=== PATIENT | male | born 1940 | race African-American/Black ===

== ENCOUNTER 2018-08-07 20:23 | Inpatient (IN) | payer MEDICAID, MEDICARE ==
[~2018-08-07] VITALS: Ht 180.3 cm; Wt 80.8 kg
[~2018-08-07 20:23] MED LIST: ASPI-986 PO; AVODART; CLOP75TA16 PO; DIGOXIN; FLORANEX; LOTREL; TYLENOL PO
[2018-08-07] MEDS ORDERED: SODIUM CHLORIDE 0.9% 1,000 ML IV ONE (20:39)
[2018-08-07] MEDS ORDERED: ONDANSETRON HCL 4MG/2ML INJ IV STA (21:03)
[2018-08-07] MEDS ORDERED: MORPHINE SULFATE 4 MG/ML CPJ (NOT FOR IM USE) IV STA (21:03)
[2018-08-07] MEDS ORDERED: ASPIRIN 81MG TABLET PO ONE (21:15)
[2018-08-07 22:09] LABS: BASOPHILS % 0.2 % (0.0-2.0); EOSINOPHILS % 0.1 % (0.0-5.0); HEMATOCRIT. 42.4 % (42.0-52.0); HEMOGLOBIN. 14.3 g/dL (14.0-18.0); LYMPHOCYTES % 12.4 % (20.0-50.0); MEAN CORPUSCULAR HEMOGLOBIN 32.4 pg (28.0-32.0); MEAN CORPUSCULAR VOLUME 95.7 fL (80.0-94.0); MEAN PLATELET VOLUME 8.8 fl (7.4-10.4); MONOCYTES % 7.2 % (2.0-8.0); NEUTROPHILS % 80.1 % (40.0-76.0); PLATELET 208 x1000/uL (130-400); RED BLOOD CELL COUNT 4.43 mill/uL (4.7-6.1)
[2018-08-07 22:11] LABS: CHLORIDE 106 mEq/L (98-107); INR 1.1; PROTHROMBIN TIME 10.9 sec (9.1-11.1)
[2018-08-07 22:19] LABS: ETHANOL BLOOD < 10 mg/dL
[2018-08-07 22:44] LABS: *AMPHETAMINES SCREEN URINE NEGATIVE (NEGATIVE); *BARBITURATES SCREEN URINE NEGATIVE (NEGATIVE); *BENZODIAZEPINES SCREEN URINE NEGATIVE (NEGATIVE); *COCAINE SCREEN URINE PRESUMTIVE POSITIVE (NEGATIVE); METHADONE URINE SCREEN NEGATIVE (NEGATIVE); OPIATES URINE SCREEN NEGATIVE (NEGATIVE)
[2018-08-07 22:45] LABS: CANNABINOID URINE SCREEN PRESUMTIVE POSITIVE (NEGATIVE); PHENCYCLIDINE URINE SCREEN NEGATIVE (NEGATIVE)
[2018-08-08] VITALS (7 sets, daily range): BP systolic 123–163; BP diastolic 72–100
[2018-08-08] MEDS ORDERED: ACET-2178 PO (04:01)
[2018-08-08] MEDS ORDERED: MEDICATION NOT ON FORMULARY EA (Acetaminophen (Tylenol) 650 MG) PO PRN (05:15)
[2018-08-08] MEDS ORDERED: MEDICATION NOT ON FORMULARY EA (Aspirin 325 MG) PO SCH (09:00)
[2018-08-08] MEDS ORDERED: MEDICATION NOT ON FORMULARY EA (Clopidogrel Bisulfate (Plavix) 75 MG) PO SCH (09:00)
[2018-08-08] MEDS: METOPROLOL TARTRATE 25MG TABLET PO SCH ×2 (09:16→22:21)
[2018-08-08] MEDS: ASPIRIN 325MG TABLET PO SCH (09:16)
[2018-08-08] MEDS: AMLODIPINE 5MG TABLET PO SCH (09:16)
[2018-08-08] MEDS: CLOPIDOGREL 75MG TABLET PO SCH (09:17)
[2018-08-08] MEDS: NICOTINE 14MG PATCH TD SCH (11:21)
[2018-08-08] MEDS: FOLIC ACID 1MG TABLET PO SCH (11:21)
[2018-08-08] MEDS: MULTIVITAMINS,THER W-MINERALS TABLET PO SCH (11:22)
[2018-08-08] MEDS: THIAMINE HCL 100MG TABLET PO SCH (11:22)
[2018-08-08] MEDS: TAMSULOSIN HCL 0.4MG SR CAPSULE PO SCH (11:23)
[2018-08-08 11:27] LABS: CREATINE KINASE MB FRACTION 1.4 ng/mL (0.5-3.6)
[2018-08-08] MEDS ORDERED: DEXTROSE 50% WATER 50ML SYRINGE IV PRN (13:00)
[2018-08-08 13:05] LABS: CLARITY URINE CLOUDY (CLEAR); COLOR URINE YELLOW (YELLOW); KETONES URINE TRACE (NEGATIVE); LEUKOCYTE ESTERASE URINE 1+ (NEGATIVE); NITRITE URINE NEGATIVE (NEGATIVE); OCCULT BLOOD URINE 3+ (NEGATIVE); PH URINE 5.5 (4.5-8.0); PROTEIN URINE 2+ (NEGATIVE); SPECIFIC GRAVITY URINE 1.022 (1.005-1.030)
[2018-08-08] MEDS: INSULIN LISPRO 100 UNITS/ML SUBCUT SCH ×3 (14:03→22:48)
[2018-08-08] MEDS ORDERED: LACTULOSE 20G/30ML UDC PO PRN (15:30)
[2018-08-08] MEDS: DOCUSATE SODIUM 250MG CAPSULE PO SCH (16:51)
[2018-08-08] MEDS: BLOOD SUGAR DIAGNOSTIC STRIP TEST SCH ×2 (17:43→22:21)
[2018-08-08] MEDS: CEFTRIAXONE 1 G PREMIX 50 ML IV SCH (17:56)
[2018-08-08] MEDS: BUDESONIDE 0.5MG/2ML NEB HHN SCH (19:30)
[2018-08-08] MEDS: IPRATROPIUM/ALBUTEROL 0.5-3(2.5)MG/3ML NEB HHN SCH (19:30)
[2018-08-08] MEDS: ACETAMINOPHEN 325MG TABLET PO PRN (22:34)
[2018-08-09] VITALS: BP 141/68
[2018-08-09] MEDS: IPRATROPIUM/ALBUTEROL 0.5-3(2.5)MG/3ML NEB HHN SCH ×4 (01:30→19:57)
[2018-08-09 04:00] VITALS: BP 136/91
[2018-08-09] MEDS: BLOOD SUGAR DIAGNOSTIC STRIP TEST SCH ×4 (06:46→21:50)
[2018-08-09 07:32] LABS: BASOPHILS % 0.3 % (0.0-2.0); EOSINOPHILS % 2.5 % (0.0-5.0); HEMATOCRIT. 41.1 % (42.0-52.0); LYMPHOCYTES % 35.6 % (20.0-50.0); MEAN CORPUSCULAR HEMOGLOBIN 32.3 pg (28.0-32.0); MEAN CORPUSCULAR VOLUME 94.9 fL (80.0-94.0); MEAN PLATELET VOLUME 8.8 fl (7.4-10.4); MONOCYTES % 11.8 % (2.0-8.0); NEUTROPHILS % 49.8 % (40.0-76.0); PLATELET 196 x1000/uL (130-400); RED BLOOD CELL COUNT 4.33 mill/uL (4.7-6.1); RED CELL DISTRIBUTION WIDTH 13.7 % (11.6-14.6)
[2018-08-09] MEDS: BUDESONIDE 0.5MG/2ML NEB HHN SCH ×2 (07:52→19:58)
[2018-08-09] MEDS: ASPIRIN 325MG TABLET PO SCH (08:36)
[2018-08-09] MEDS: MULTIVITAMINS,THER W-MINERALS TABLET PO SCH (08:36)
[2018-08-09] MEDS: FOLIC ACID 1MG TABLET PO SCH (08:36)
[2018-08-09] MEDS: AMLODIPINE 5MG TABLET PO SCH (08:36)
[2018-08-09] MEDS: CLOPIDOGREL 75MG TABLET PO SCH (08:36)
[2018-08-09] MEDS: METOPROLOL TARTRATE 25MG TABLET PO SCH ×2 (08:37→21:44)
[2018-08-09] MEDS: DOCUSATE SODIUM 250MG CAPSULE PO SCH (08:37)
[2018-08-09] MEDS: TAMSULOSIN HCL 0.4MG SR CAPSULE PO SCH (08:38)
[2018-08-09] MEDS: NICOTINE 14MG PATCH TD SCH (09:04)
[2018-08-09] MEDS: THIAMINE HCL 100MG TABLET PO SCH (09:04)
[2018-08-09 09:36] LABS: CHLORIDE 106 mEq/L (98-107)
[2018-08-09 10:34] LABS: T4 FREE 1.21 ng/dL (0.76-1.46)
[2018-08-09] MEDS ORDERED: BISACODYL 10MG SUPP PR PRN (11:30)
[2018-08-09] MEDS ORDERED: NA PHOS,M-B/NA PHOS,DI-BA ENEMA 118ML PR NR (11:30)
[2018-08-09 12:00] VITALS: BP 135/81
[2018-08-09] MEDS: INSULIN LISPRO 100 UNITS/ML SUBCUT SCH ×4 (12:45→21:50)
[2018-08-09] MEDS: GABAPENTIN 300MG CAPSULE PO SCH ×2 (14:00→21:44)
[2018-08-09 16:00] VITALS: BP 137/73
[2018-08-09 16:07] LABS: CREATINE KINASE 69 IU/L (39-308)
[2018-08-09 16:08] LABS: CREATINE KINASE MB FRACTION < 1.0 ng/mL (0.5-3.6)
[2018-08-09] MEDS: CEFTRIAXONE 1 G PREMIX 50 ML IV SCH (17:21)
[2018-08-09 18:00] VITALS: BP 135/75
[2018-08-09 20:00] VITALS: BP 146/82
[2018-08-09] MEDS: ACETAMINOPHEN 325MG TABLET PO PRN (21:44)
[2018-08-10] VITALS: BP 134/76
[2018-08-10 00:20] LABS: CREATINE KINASE 58 IU/L (39-308)
[2018-08-10 00:21] LABS: CREATINE KINASE MB FRACTION < 1.0 ng/mL (0.5-3.6)
[2018-08-10] MEDS: IPRATROPIUM/ALBUTEROL 0.5-3(2.5)MG/3ML NEB HHN SCH ×2 (01:33→08:20)
[2018-08-10 04:00] VITALS: BP 124/73
[2018-08-10] MEDS: GABAPENTIN 300MG CAPSULE PO SCH ×2 (05:48→13:55)
[2018-08-10] MEDS: BLOOD SUGAR DIAGNOSTIC STRIP TEST SCH ×2 (07:40→12:40)
[2018-08-10 08:00] VITALS: BP 127/67
[2018-08-10] MEDS: INSULIN LISPRO 100 UNITS/ML SUBCUT SCH ×2 (08:10→13:53)
[2018-08-10] MEDS: BUDESONIDE 0.5MG/2ML NEB HHN SCH (08:43)
[2018-08-10] MEDS ORDERED: ASPIRIN 81MG TABLET PO SCH (09:00)
[2018-08-10] MEDS: AMLODIPINE 5MG TABLET PO SCH (09:07)
[2018-08-10] MEDS: DOCUSATE SODIUM 250MG CAPSULE PO SCH (09:08)
[2018-08-10] MEDS: FOLIC ACID 1MG TABLET PO SCH (09:08)
[2018-08-10] MEDS: TAMSULOSIN HCL 0.4MG SR CAPSULE PO SCH (09:08)
[2018-08-10] MEDS: CLOPIDOGREL 75MG TABLET PO SCH (09:08)
[2018-08-10] MEDS: MULTIVITAMINS,THER W-MINERALS TABLET PO SCH (09:08)
[2018-08-10] MEDS: THIAMINE HCL 100MG TABLET PO SCH (09:08)
[2018-08-10] MEDS: METOPROLOL TARTRATE 25MG TABLET PO SCH (09:08)
[2018-08-10] MEDS: NICOTINE 14MG PATCH TD SCH (09:09)
[2018-08-10 10:46] LABS: CREATINE KINASE 59 IU/L (39-308); CREATINE KINASE MB FRACTION < 1.0 ng/mL (0.5-3.6)
[2018-08-10 14:15] VITALS: BP 156/83
== END 2018-08-10 16:37 | disposition home or self-care (01) | DRG 917 ==
LOC: ER 20:23 → 7WST 08-08 01:22 → EDBEDREQDT 08-08 01:26 → EDBEDREQTM 08-08 01:26 → EDBEDREQ 08-08 01:26 → ENRESERV 08-08 01:51
PROVIDERS: ADMIT Internal Medicine; ATTEND Internal Medicine
DX: T40.5X1A Poisoning by cocaine, accidental (unintentional), initial encounter (principal); J96.00 Acute respiratory failure, unspecified whether with hypoxia or hypercapnia; I50.30 Unspecified diastolic (congestive) heart failure; J68.0 Bronchitis and pneumonitis due to chemicals, gases, fumes and vapors; N39.0 Urinary tract infection, site not specified; K59.00 Constipation, unspecified; E11.51 Type 2 diabetes mellitus with diabetic peripheral angiopathy without gangrene; F10.10 Alcohol abuse, uncomplicated; F12.10 Cannabis abuse, uncomplicated; F17.210 Nicotine dependence, cigarettes, uncomplicated; I11.0 Hypertensive heart disease with heart failure; F14.188 Cocaine abuse with other cocaine-induced disorder; N40.1 Benign prostatic hyperplasia with lower urinary tract symptoms; I25.10 Atherosclerotic heart disease of native coronary artery without angina pectoris; R33.8 Other retention of urine; I48.91 Unspecified atrial fibrillation; Y92.89 Other specified places as the place of occurrence of the external cause; Z95.5 Presence of coronary angioplasty implant and graft; Z79.82 Long term (current) use of aspirin; Z79.899 Other long term (current) drug therapy; Z79.1 Long term (current) use of non-steroidal anti-inflammatories (NSAID)
CPT/HCPCS: 36415; 51702; 71045; 80048; 80061; 80305; 82550; 82553; 82962; 83036; 83880; 84439; 84443; 84484; 85379; 93005; 93306; 93970; 94640; 96360; 97162; 99285; G0482; J0696; J1815; J7030; J7050; J7620; J7626

== ENCOUNTER 2018-09-20 17:30 | Emergency (ER) | payer MEDICARE ==
[~2018-09-20] VITALS: Ht 180.3 cm; Wt 82.0 kg
[~2018-09-20 17:30] MED LIST changes: +ACET-2178 PO; -AVODART; -DIGOXIN; -FLORANEX; -LOTREL; -TYLENOL PO
[2018-09-20] MEDS ORDERED: LORAZEPAM 0.5MG TABLET PO ONE (20:45)
[2018-09-20 21:34] VITALS: BP 145/99
== END 2018-09-20 21:35 | disposition home or self-care (01) ==
LOC: ER 17:30
DX: T83.091A Other mechanical complication of indwelling urethral catheter, initial encounter (principal); F41.9 Anxiety disorder, unspecified; I11.9 Hypertensive heart disease without heart failure; I51.9 Heart disease, unspecified; I25.10 Atherosclerotic heart disease of native coronary artery without angina pectoris; F17.200 Nicotine dependence, unspecified, uncomplicated; Z79.899 Other long term (current) drug therapy
CPT/HCPCS: 99283

== ENCOUNTER 2019-01-14 15:49 | Emergency (ER) | payer MEDICARE ==
[~2019-01-14] VITALS: Ht 180.3 cm; Wt 89.9 kg
[2019-01-14 18:13] LABS: BASOPHILS % 0.3 % (0.0-2.0); HEMATOCRIT. 42.8 % (42.0-52.0); HEMOGLOBIN. 14.3 g/dL (14.0-18.0); LYMPHOCYTES % 51.8 % (20.0-50.0); MEAN CORPUSCULAR VOLUME 95.7 fL (80.0-94.0); MEAN PLATELET VOLUME 8.4 fl (7.4-10.4); MONOCYTES % 9.8 % (2.0-8.0); NEUTROPHILS % 36.1 % (40.0-76.0); PLATELET 213 x1000/uL (130-400); RED BLOOD CELL COUNT 4.47 mill/uL (4.7-6.1)
[2019-01-14 18:15] LABS: CHLORIDE 109 mEq/L (98-107)
[2019-01-14 18:20] LABS: PROTHROMBIN TIME 10.7 sec (9.6-11.0)
[2019-01-14 18:37] VITALS: BP 139/82
[2019-01-14 18:47] LABS: CLARITY URINE CLOUDY (CLEAR); COLOR URINE YELLOW (YELLOW); KETONES URINE NEGATIVE (NEGATIVE); LEUKOCYTE ESTERASE URINE 2+ (NEGATIVE); NITRITE URINE POSITIVE (NEGATIVE); OCCULT BLOOD URINE 3+ (NEGATIVE); PH URINE 5.5 (4.5-8.0); PROTEIN URINE 2+ (NEGATIVE); SPECIFIC GRAVITY URINE 1.023 (1.005-1.030)
[2019-01-14] MEDS ORDERED: CEFTRIAXONE SODIUM 1 G/VIAL IM ONE (19:15)
[2019-01-14] MEDS ORDERED: LIDOCAINE HCL 1% 20ML VIAL (Pyxis) INJ INFIL ONE (19:15)
== END 2019-01-14 20:37 | disposition home or self-care (01) ==
LOC: ER 15:49
DX: N39.0 Urinary tract infection, site not specified (principal); F17.200 Nicotine dependence, unspecified, uncomplicated; F12.10 Cannabis abuse, uncomplicated
CPT/HCPCS: 36415; 51702; 80053; 81003; 85025; 85610; 87077; 87086; 87186; 96372; 99284; J0696; J3490; 99283; A4315

== ENCOUNTER 2019-03-27 14:52 | Emergency (ER) | payer MEDICARE ==
[~2019-03-27] VITALS: Ht 180.3 cm; Wt 86.0 kg
[~2019-03-27 14:52] MED LIST changes: -CLOP75TA16 PO; +CLOP75TA4 PO
[2019-03-27] MEDS ORDERED: SODIUM CHLORIDE 0.9% 1,000 ML IV ONE (15:14)
[2019-03-27] MEDS ORDERED: ACETAMINOPHEN 325MG TABLET PO STA (15:14)
[2019-03-27] MEDS ORDERED: CLONIDINE 0.1MG TABLET PO ONE (16:30)
[2019-03-27 16:35] LABS: BASOPHILS % 0.2 % (0.0-2.0); EOSINOPHILS % 1.1 % (0.0-5.0); HEMOGLOBIN. 14.6 g/dL (14.0-18.0); MEAN CORPUSCULAR HEMOGLOBIN 32.1 pg (28.0-32.0); MEAN CORPUSCULAR VOLUME 94.7 fL (80.0-94.0); MEAN PLATELET VOLUME 8.3 fl (7.4-10.4); NEUTROPHILS % 45.7 % (40.0-76.0); PLATELET 190 x1000/uL (130-400); RED BLOOD CELL COUNT 4.54 mill/uL (4.7-6.1); RED CELL DISTRIBUTION WIDTH 13.5 % (11.6-14.6)
[2019-03-27 16:40] LABS: CLARITY URINE CLOUDY (CLEAR); COLOR URINE YELLOW (YELLOW); KETONES URINE TRACE (NEGATIVE); LEUKOCYTE ESTERASE URINE 3+ (NEGATIVE); NITRITE URINE POSITIVE (NEGATIVE); OCCULT BLOOD URINE 2+ (NEGATIVE); PROTEIN URINE 2+ (NEGATIVE); SPECIFIC GRAVITY URINE 1.024 (1.005-1.030)
[2019-03-27 16:42] LABS: CHLORIDE 109 mEq/L (98-107)
[2019-03-27] MEDS ORDERED: CEFEPIME 1,000 MG in DEXTROSE 5% WATER 50 ML IV ONE (19:00)
[2019-03-27 21:39] VITALS: BP 184/83
== END 2019-03-27 21:47 | disposition home or self-care (01) ==
LOC: ER 14:52
DX: N39.0 Urinary tract infection, site not specified (principal); J44.9 Chronic obstructive pulmonary disease, unspecified; I10 Essential (primary) hypertension; Z79.82 Long term (current) use of aspirin
CPT/HCPCS: 36415; 51702; 71045; 80053; 81003; 83880; 84484; 85025; 87077; 87086; 87186; 93005; 96365; 96366; 99284; J0692; J7030; J7060; A4315

== ENCOUNTER 2019-05-03 11:58 | Emergency (ER) | payer MEDICARE ==
[~2019-05-03] VITALS: Ht 180.3 cm; Wt 82.0 kg
[2019-05-03] MEDS ORDERED: TRAMADOL 50MG TABLET PO ONE (13:15)
[2019-05-03 13:20] LABS: BASOPHILS % 0.3 % (0.0-2.0); EOSINOPHILS % 0.2 % (0.0-5.0); HEMATOCRIT. 42.3 % (42.0-52.0); HEMOGLOBIN. 14.7 g/dL (14.0-18.0); LYMPHOCYTES % 23.2 % (20.0-50.0); MEAN CORPUSCULAR VOLUME 95.3 fL (80.0-94.0); MEAN PLATELET VOLUME 8.4 fl (7.4-10.4); MONOCYTES % 6.3 % (2.0-8.0); PLATELET 181 x1000/uL (130-400); RED BLOOD CELL COUNT 4.44 mill/uL (4.7-6.1); RED CELL DISTRIBUTION WIDTH 14.8 % (11.6-14.6)
[2019-05-03 13:25] LABS: CHLORIDE 108 mEq/L (98-107); INR 1.1; PROTHROMBIN TIME 10.9 sec (9.6-11.0)
[2019-05-03 16:17] LABS: CLARITY URINE CLEAR (CLEAR); COLOR URINE YELLOW (YELLOW); KETONES URINE NEGATIVE (NEGATIVE); LEUKOCYTE ESTERASE URINE NEGATIVE (NEGATIVE); NITRITE URINE NEGATIVE (NEGATIVE); OCCULT BLOOD URINE NEGATIVE (NEGATIVE); PROTEIN URINE 2+ (NEGATIVE)
[2019-05-03 17:30] VITALS: BP 147/84
== END 2019-05-03 19:08 | disposition home or self-care (01) ==
LOC: ER 11:58
DX: R10.9 Unspecified abdominal pain (principal); I51.9 Heart disease, unspecified; Z79.82 Long term (current) use of aspirin; Z98.62 Peripheral vascular angioplasty status
CPT/HCPCS: 36415; 81003; 99283